=== PATIENT | male | born 1950 | race African-American/Black ===

== ENCOUNTER 2017-09-23 12:38 | Emergency (ER) | payer MEDICARE ==
[~2017-09-23 12:38] MED LIST: ASPI-183 PO; HYDR12.57 PO; KETO10 PO; METO25TA3 PO; PLAV75TA29 PO; PRAV40TA PO
[2017-09-23 12:59] VITALS: BP 247/109; PULSE 71; RESP 18; TEMP 97.9; O2SAT 96
[2017-09-23] MEDS ORDERED: BUPR150T3 PO (13:21)
[2017-09-23] MEDS ORDERED: CLIN150C14 PO (13:21)
[2017-09-23] MEDS ORDERED: TRAM50TA PO (13:21)
--- NOTE | 2017-09-23 14:10 | RADRPT ---
EXAM DATE/TIME: 09/23/2017 13:52 [place] COMPARISON: CTA RUNOFF W 3D RECON, June 20, 2016, 21:57. INDICATIONS : Urinary retention. ORAL CONTRAST: No oral contrast ingested. RADIATION DOSE: 8.02 CTDIvol (mGy) MEDICAL HISTORY : Hypertension. Anticoagulant therapy. PVD. SURGICAL HISTORY : None. ENCOUNTER: Initial ACUITY: 2 days PAIN SCALE: 4/10 LOCATION: pelvis TECHNIQUE: Volumetric scanning of the abdomen and pelvis was performed. Using automated exposure control and ad justment of the mA and/or kV according to patient size, radiation dose was kept as low as reasonably achievable to obtain optimal diagnostic quality images. DICOM format image data is available electro nically for review and comparison. FINDINGS: The limited portion of lung bases visualized is clear. The appearance of the liver, spleen, pancreas, adrenal glands and kidneys is within normal limits. There is no retroperitoneal adenopathy. The abdominal aorta is normal in caliber. There is mild ather osclerotic plaquing involving the aortic bifurcation. There is no free fluid within the pelvis. No iliac or inguinal adenopathy is present. There is a Fole y catheter within the bladder. The prostate is mildly enlarged. The visualized bony structures demonstrate degenerative changes in the lumbar spine but are otherwise grossly intact. CONCLUSION: 1. There is a Timmons catheter within the bladder. The prostate is mildly enlarged. The bladder is deco mpressed. 2. Mild atherosclerotic plaquing in the distal aorta and iliac arteries. 3. Degenerative changes in the lumbar spine. Yoseph cEhavarria MD on September 23, 2017 at 14:04 Board Certified Radiologist. This report was verified electronically.
[2017-09-23 14:15] LABS: BILIRUBIN, URINE NEG (NEG); BLOOD, URINE LARGE (NEG); GLUCOSE,URINE NEG (NEG); KETONE, URINE NEG (NEG); NITRITE,URINE NEG (NEG); URINE COLOR YELLOW (YELLW/STRAW); URINE LEUKOCYTE ESTERASE NEG (NEG)
[2017-09-23 14:29] LABS: AMORPHOUS SEDIMENT, URINE FEW; SQUAMOUS EPITHELIAL CELL URINE 0-5 /hpf (0-5); WHITE BLOOD CELL CLUMPS OCC
[2017-09-23 14:39] VITALS: BP 181/91; PULSE 63; RESP 16; O2SAT 96
[2017-09-23 14:45] LABS: CHLORIDE 103 MEQ/L (98-107); SODIUM (NA) 136 MEQ/L (136-145)
[2017-09-23 14:49] LABS: ALBUMIN 3.3 GM/DL (3.4-5.0); BICARBONATE 24.1 MEQ/L (21.0-32.0); BLOOD UREA NITROGEN 8 MG/DL (7-18); CALCIUM 9.2 MG/DL (8.5-10.1); GLUCOSE,RANDOM 89 MG/DL (74-106)
[2017-09-23 14:52] LABS: ALT (GPT) 19 U/L (12-78); AST (GOT) 38 U/L (15-37); GLOMERULAR FILTRATION RATE 91 ML/MIN (>89)
[2017-09-23 14:54] LABS: TOTAL BILIRUBIN ADULT 0.4 MG/DL (0.2-1.0); TOTAL PROTEIN 7.5 GM/DL (6.4-8.2)
[2017-09-23 14:55] LABS: ALKALINE PHOSPHATASE 86 U/L (45-117)
--- NOTE | 2017-09-23 15:27 | PD ---
HPI Chief Complaint: Complaint Time Seen by Provider: 13:10 Travel History International Travel<30 days: No Contact w/Intl Traveler<30days: No Traveled to known affect area: No History of Present Illness HPI This is a 67-year-old male who presented here complaining of urinary retention. Patient was not able to urinate for the last 2 days and says that has been dripping every time he tries to urinate. Patient never had these symptoms before and denies any frequency or urgency urination. Patient continued to the ER also complaining of lower abdominal pain and was unable to sit down because of the pain. PFSH Past Medical History Hx Anticoagulant Therapy: Yes (PLAVIX) Cancer: No Cardiovascular Problems: Yes (HTN, PVD) Endocrine: No Gastrointestinal Disorders: No Genitourinary: No Hypertension: Yes Musculoskeletal: No Neurologic: No Psychiatric: No Respiratory: No Tetanus Vaccination: Unknown Influenza Vaccination: No ?: Not Past Surgical History Other Surgery: No Social History Alcohol Use: No Tobacco Use: Yes Substance Use: No Allergies-Medications (Allergen,Severity, Reaction): Coded Allergies: penicillin G (Unverified Allergy, Unknown, 09/23/17) Reported Meds & Prescriptions Reported Meds & Active Scripts Active Plavix (Clopidogrel Bisulfate) 75 Mg Tab 75 Mg PO DAILY Pravachol (Pravastatin) 40 Mg Tab 40 Mg PO HS Metoprolol Tartrate 25 Mg Tab 12.5 Mg PO Q12HR Hydrochlorothiazide 12.5 Mg Cap 12.5 Mg PO DAILY Aspirin 325 Mg Tab 325 Mg PO DAILY Reported Clindamycin (Clindamycin HCl) 150 Mg Cap 150 Mg PO Q6H Tramadol (Tramadol HCl) 50 Mg Tab 50 Mg PO Q8H PRN Bupropion HCl ER 24 HR (Bupropion HCl) 150 Mg Tab 150 Mg PO DAILY Physical Exam Narrative GENERAL: Alert oriented 3 no acute distress. SKIN: Focused skin assessment warm/dry. HEAD: Atraumatic. Normocephalic. EYES: Pupils equal and round. No scleral icterus. No injection or drainage. ENT: No nasal bleeding or discharge. Mucous membranes pink and moist. NECK: Trachea midline. No JVD. CARDIOVASCULAR: Regular rate and rhythm. No murmur appreciated. RESPIRATORY: No accessory muscle use. Clear to auscultation. Breath sounds equal bilaterally. GASTROINTESTINAL: Abdomen soft, non-tender, nondistended. Hepatic and splenic margins not palpable. MUSCULOSKELETAL: No obvious deformities. No clubbing. No cyanosis. No edema. NEUROLOGICAL: Awake and alert. No obvious cranial nerve deficits. Motor grossly within normal limits. Normal speech. PSYCHIATRIC: Appropriate mood and affect; insight and judgment normal. Data Data Last Documented VS Vital Signs Date Time Temp Pulse Resp B/P (MAP) Pulse Ox O2 Delivery O2 Flow Rate FiO2 09/23/17 15:54 80 16 167/86 (113) 95 09/23/17 14:39 Room Air 09/23/17 12:59 97.9 Orders Orders Urinalysis - C+S If Indicated (09/23/17 13:31) Comprehensive Metabolic Panel (09/23/17 13:31) Complete Blood Count With Diff (09/23/17 13:31) Ct Abd/Pel W/O Iv Contrast (09/23/17 ) Urine Culture (09/23/17 13:45) Insert Temp Sensing Timmons Cath (09/23/17 14:36) Ed Discharge Order (09/23/17 16:45) Labs Laboratory Tests Test 09/23/17 13:45 09/23/17 14:20 09/23/17 15:20 Urine Color YELLOW Urine Turbidity CLEAR Urine pH 6.0 Urine Specific [place] GREATER/EQUAL 1.030 Urine Protein 30 mg/dL Urine Glucose (UA) NEG mg/dL Urine Ketones NEG mg/dL Urine Occult Blood LARGE Urine Nitrite NEG Urine Bilirubin NEG Urine Urobilinogen 0.2 MG/DL Urine Leukocyte Esterase NEG Urine RBC 4-9 /hpf Urine WBC 3-5 /hpf Urine WBC Clumps OCC Urine Squamous Epithelial Cells 0-5 /hpf Urine Amorphous Sediment FEW Microscopic Urinalysis Comment CULTURE INDICATED Blood Urea Nitrogen 8 MG/DL Creatinine 1.00 MG/DL Random Glucose 89 MG/DL Total Protein 7.5 GM/DL Albumin 3.3 GM/DL Calcium Level 9.2 MG/DL Alkaline Phosphatase 86 U/L Aspartate Amino Transf (AST/SGOT) 38 U/L Alanine Aminotransferase (ALT/SGPT) 19 U/L Total Bilirubin 0.4 MG/DL Sodium Level 136 MEQ/L Potassium Level 4.8 MEQ/L Chloride Level 103 MEQ/L Carbon Dioxide Level 24.1 MEQ/L Anion Gap 9 MEQ/L Estimat Glomerular Filtration Rate 91 ML/MIN White Blood Count 9.0 TH/MM3 Red Blood Count 4.33 MIL/MM3 Hemoglobin 10.2 GM/DL Hematocrit 32.3 % Mean Corpuscular Volume 74.6 FL Mean Corpuscular Hemoglobin 23.5 PG Mean Corpuscular Hemoglobin Concent 31.6 % Red Cell Distribution Width 20.8 % Platelet Count 266 TH/MM3 Mean Platelet Volume 7.5 FL CBC Comment AUTO DIFF MDM Medical Decision Making Medical Screen Exam Complete: Yes Emergency Medical Condition: Yes Differential Diagnosis Benign prostatic hyperplasia, urinary retention, bladder malignancy. Narrative Course This is a 67-year-old male presented here for acute urinary retention. He states that he has not been drinking enough water. Patient had Timmons catheter placed and about 500 cc of bloody urine man came out. Patient labs and CAT scan are unremarkable except for blood in the urine. Patient will be discharged with a Timmons catheter in and to follow-up with urology in the office. I spoke with Dr. Rodriguez urologist and he will follow-up with him in 1 week. Patient will be given Flomax. Patient is stable to be discharged. Diagnosis Primary Impression: Acute urinary retention Additional Instructions: Keep the Timmons catheter and return to ER if symptoms change or do not improve or any signs of infection. Follow-up with urology in 1 week take medication as directed. Scripts Tamsulosin (Flomax) 0.4 Mg Cap 0.4 MG PO HS for Manage Prostate Problems, #30 CAP 0 Refills Prov: Jamie Gil MD 09/23/17 Disposition: DISCHARGE HOME Condition: Stable Jamie Gil MD Sep 23, 2017 15:27
[2017-09-23 15:33] LABS: HEMATOCRIT 32.3 % (39.0-51.0); HEMOGLOBIN 10.2 GM/DL (13.0-17.0); MEAN CELL VOLUME 74.6 FL (80.0-100.0); MEAN CORPUSCULAR HEMOGLOBIN 23.5 PG (27.0-34.0); MEAN CORPUSCULAR HGB CONC 31.6 % (32.0-36.0); MEAN PLATELET VOLUME 7.5 FL (7.0-11.0); PLATELET COUNT 266 TH/MM3 (150-450); RED BLOOD COUNT 4.33 MIL/MM3 (4.50-5.90); RED CELL DISTRIBUTION WIDTH 20.8 % (11.6-17.2)
[2017-09-23 15:54] VITALS: BP 167/86; PULSE 80; RESP 16; O2SAT 95
[2017-09-23 16:25] LABS: LYMPHOCYTES 13 % (9-44); MONOCYTES 6 % (0-8); NEUTROPHIL # MANUAL DIFF 7.3 TH/MM3 (1.8-7.7); POLYS (SEG NEUTROPHILS) 81 % (16-70)
[2017-09-23] MEDS ORDERED: TAMS5CAP PO (17:04)
[2017-09-23 17:06] LABS: OVALOCYTES 1+ (NORMAL); TEARDROP RBCS 1+ (NORMAL)
== END 2017-09-23 18:00 | disposition home or self-care (01) ==
LOC: PHED 12:38
DX: R33.9 Retention of urine, unspecified (principal); R31.9 Hematuria, unspecified; R10.30 Lower abdominal pain, unspecified; I10 Essential (primary) hypertension; Z72.0 Tobacco use; Z79.01 Long term (current) use of anticoagulants; Z86.79 Personal history of other diseases of the circulatory system
CPT/HCPCS: 51702; 74176; 80053; 81001; 85007; 85027; 87086